=== PATIENT | male | born 1955 | race Caucasian/White ===

== ENCOUNTER 2017-01-21 11:04 | Inpatient (IN) | payer OTHER ==
[~2017-01-21] VITALS: Ht 167.6 cm; Wt 138.8 kg
--- NOTE | ~2017-01-21 | HC ---
[facility] [place] [address] CONSULTATION Name: ESTELA ENRIQUE Room #: 458-P ADM IN M.R.#: [id number] Admission: 01/21/17 Attend Phys: Chalino Nguyen MD Discharge: Date of : 57 Report #: [id number] THIS REPORT FOR: //name// CC: Chalino Mistryjannie [facility] DATE OF SERVICE: 01/24/2017 HISTORY OF PRESENT ILLNESS: The patient is a 61-year-old white male originally admitted to [facility] was then transferred to [facility] with an acute CVA. He was noted to have incoordination with weakness of the left upper and left lower extremity, slurred speech, facial droop. CT of the head was negative, but MRI confirmed a right basal ganglia infarct. Neurology is involved. He has elevated lipids, exogenous obesity. He is being seen now in rehabilitation medicine consultation. PAST MEDICAL HISTORY: Otherwise includes history of chewing tobacco. HABITS: No history of alcohol or drug usage. ALLERGIES: No known drug allergies. MEDICATIONS: Please see the full medication listing. Premorbid medications were just nonsteroidals p.r.n. PAST SURGICAL HISTORY: None. FAMILY HISTORY: None significant reported. SOCIAL HISTORY: Lives in an apartment with his brother, 1 step, his brother is apparently disabled, secondary to anxiety. REVIEW OF SYSTEMS: Did not offer any current complaints of chest pain, shortness of breath or abdominal discomfort. He complains of the weakness of the left upper and left lower extremity and does not particularly like thickened liquid diet. No focal pain complaints. PHYSICAL EXAMINATION: GENERAL: A 61-year-old obese white male in no obvious distress. VITAL SIGNS: Height 5 feet 6 inches, weight 306 pounds. He is alert, pleasant. HEENT: Revealed a definite left facial droop. He has obvious slurred speech. EOMs are full. No obvious visual field neglect to confrontation. He is right handed and appears to have functional range of motion and strength of the right upper and right lower extremity without focal weakness. DTRs are 1-2. In his left upper extremity he was only able to raise that left arm slightly. Otherwise, no volitional movement was noted of the shoulder, elbow including [facility] [address] [place] [address] CONSULTATION Name: ESTELA ENRIQUE Room #: 458-P [facility] IN M.R.#: [id number] Admission: 01/21/17 Attend Phys: Chalino Nguyen MD Discharge: Date of : 57 Report #: [id number] flexion, extension and no movement of the wrist, thumb or hand. Tone appeared decreased. Left lower extremity, he had better strength probably at least 3+ to 4-/5. No clonus. DTRs were 1 to trace. Sensory examination appeared reasonably intact to simultaneous stimulation both upper and lower extremities as well as left face. Functionally, he has been mod assist with sit to stand. Gait was 5 feet x 2 mod assist with a front-wheeled walker. Lower extremity dressing is max assist, upper extremity dressing is mod assist. He was noted to have some dysphagia, mechanical soft nectar-thickened liquids. He does have dysarthria. There is noted some cognitive by Speech Therapy as well. ASSESSMENT: A 61-year-old right-handed white male with the following problem list: 1. Right basal ganglia infarct. 2. Left upper extremity dense paresis with left lower extremity paresis. 3. Left facial droop with dysarthria and aphasia. 4. Functional mobility, activities of daily living and cognitive communication, swallowing deficits. 5. Obesity. 6. Elevated lipids. 7. Initial elevated blood pressure. 8. Chews tobacco. PLAN: The patient is an excellent acute in-hospital inpatient rehabilitation candidate. From a preadmission screening perspective: 1. Prior level of function is well delineated above. 2. Expected level of improvement would be for the patient to become modified independent with transfers, mobility, ADLs, communication, cognition and swallowing, so that he can return back to the home setting where he lives with his brother. Would anticipate length of stay of probably at least 7-10 days, but will need to see how he does with his therapies. 3. Evaluation of the patient's risk for clinical complications. He has the above noted comorbidities. 4. Condition that caused the need for rehabilitation is the acute stroke. 5. Treatments needed would include PT, OT and speech 1 hour per day each five days a week throughout the duration of the acute inpatient rehabilitation stay. 6. Anticipated discharge destination would be back to the home setting with his brother in their apartment. 7. Would anticipate likely some home healthcare if not outpatient therapies once he is ready for discharge from the acute in-hospital inpatient rehabilitation stay back to the home setting. By: [id number] Fercho Barnhart MD /
--- NOTE | ~2017-01-21 | H ---
[facility] [place] [address] HISTORY AND PHYSICAL Name: ESTELA ENRIQUE Room #: 458-P ADM IN M.R.#: [id number] Admission: 01/21/17 Attend Phys: Chalino Nguyen MD Discharge: Date of : 57 Report #: [id number] THIS REPORT FOR: //name// CC: Chalino Mistryjannie [facility] DATE OF SERVICE: 01/21/2017 REASON FOR ADMISSION: Suspected CVA. HISTORY OF PRESENT ILLNESS: The patient is a very pleasant 61-year-old gentleman, referred as a direct admit from [facility] today with concerns for an acute CVA. The patient reportedly was normal last night when he went to bed at around 8:30 p.m. Subsequently around midnight, he reported that he started experiencing weakness or incoordination in his left lower extremity. This subsequently progressed and included incoordination in his left upper extremity as well as speech slurring and facial droop and hence he presented to [facility]. These physical exam findings were confirmed. A CT head was performed, which did not reveal any acute hemorrhage and he has subsequently been transferred to [facility] for further evaluation and treatment. His initial NIH score was 6 at [facility] and is 4 here at [facility]. He failed a bedside swallow study at [facility]. The patient reports that he has had mild improvement of his left weakness. He denies any other numbness, weakness, skin rashes, abdominal pain, chest pain, headaches, diarrhea or other problems at this time. PAST MEDICAL HISTORY: None known to the patient. Noted to have elevated blood pressure at [facility] of 177/85. PAST SURGICAL HISTORY: None. FAMILY HISTORY: None significant reported. SOCIAL HISTORY: He chews tobacco. He also smokes cigars. He denies any alcohol or drug use. 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 MEDICATIONS AT HOME: NSAIDs p.r.n. ALLERGIES: No known drug allergies. REVIEW OF SYSTEMS: Twelve-point review of systems performed, negative except as mentioned in history of present illness. PHYSICAL EXAMINATION: Seen today: VITAL SIGNS: The patient's vitals at [facility] noted pulse ox of 94, blood pressure 177/85, afebrile, pulse 65, respiration rate of 18. [facility] [address] [place] [address] HISTORY AND PHYSICAL Name: ESTELA ENRIQUE Room #: 458-P [facility] IN M.R.#: [id number] Admission: 01/21/17 Attend Phys: Chalino Nguyen MD Discharge: Date of : 57 Report #: [id number] HEENT: Notable for left facial droop and slurred speech. Pupils are equal and reactive. CARDIOVASCULAR: S1 and S2 present, regular. ____ present bilaterally. ABDOMEN: Obese, soft, nontender, nondistended. EXTREMITIES: Without edema. NEUROLOGIC: Weakness in left upper extremity with 2/5 strength as well as pronator drift noted on left. Left lower extremity 4/5 strength. Otherwise left facial droop noted. No other obvious focal abnormalities noted. SKIN: Dry. LABS AND INVESTIGATIONS: Done at [facility] includes an EKG, which shows normal sinus rhythm without concerning ST or T changes. CT head shows no acute abnormalities. Chemistry within normal range. Minimally elevated glucose of 123. CBC with mild leukocytosis of 11, otherwise unremarkable. ASSESSMENT AND PLAN: This is a 61-year-old gentleman presenting with signs concerning for left weakness and right-sided cerebrovascular accident. 1. Suspected right-sided cerebrovascular accident. I will complete stroke workup here with an MRI/MRA as well as carotid Dopplers and an echocardiogram. We will involve Neurology in the patient's care as well. Permissive hypertension will be employed for the present until he is 48 hours post symptoms. He is unfortunately well outside the window for tPA as his symptoms started at midnight yesterday. He will start rectal aspirin for the patient until he can safely tolerate p.o. and will obtain speech evaluation as well. 2. Hypertension, permissive for now. 3. Mild hyperglycemia. Follow A1c. 4. Deep vein thrombosis prophylaxis with Lovenox. Further changes to care based on his clinical course. <ELECTRONICALLY SIGNED> By: Chalino Nguyen MD 01/21/17 [id number] Chalino Nguyen MD /nt
--- NOTE | ~2017-01-21 | 2DMMODE ---
[facility] [place] [place] [address] [place] [address] 2 D/M-MODE ECHOCARDIOGRAM Name: ESTELA ENRIQUE ALEJANDRO Room #: 458-P [facility] IN M.R.#: [id number] Admission: 01/21/17 Attend Phys: Chalino Nguyen, Discharge: Date of : 57 Date of Service: 01/21/17 1524 Report #: [id number] THIS REPORT FOR: //name// APPROVED REPORT Study performed: 01/21/2017 13:31:48 EXAM: Comprehensive 2D, Doppler, and color-flow Echocardiogram Patient Location: Bedside Room #: 458 Status: routine BSA: 2.40 HR: 59 bpm BP: 161/81 mmHg Other Information Study Quality: Adequate Indications CVA/TIA 2D Dimensions RVDd: 34.56 mm LVEF(%): 70.52 (>50%) IVSd: 9.96 (7-11mm) LVOT Diam: 22.37 (18-24mm) LVDd: 46.27 mm PWd: 10.17 (7-11mm) Ascending Ao: 30.95 (22-36mm) LVDs: 27.82 (25-40mm) Aortic Root: 30.56 mm Barnard's LVEF: 70.52 % Volumes Left Atrial Volume (Systole) Single Plane 4CH: 49.36 mL Single Plane 2CH: 59.97 mL LA ESV Index: 25.00 mL/m2 Aortic Valve AoV Peak Krzysztof.: 1.38 m/s AO Peak Gr.: 7.58 mmHg LVOT Max P.83 mmHg LVOT Max V: 1.10 m/s JESSI Vmax: 3.13 cm2 Mitral Valve E/A Ratio: 1.1 MV Decel. Time: 190.23 ms MV E Max Krzysztof.: 0.84 m/s [facility] [place] [address] 2 D/M-MODE ECHOCARDIOGRAM Name: KLAUSESTELA JAMES Room #: 458-P [facility] IN M.R.#: [id number] Admission: 01/21/17 Attend Phys: Chalino Nguyen, Discharge: Date of : 57 Date of Service: 01/21/17 1524 Report #: [id number] MV A Krzysztof.: 0.75 m/s MV PHT: 55.17 ms IVRT: 124.57 ms Pulmonary Valve PV Peak Krzysztof.: 1.09 m/s PV Peak Gr.: 4.71 mmHg Pulmonary Vein P Vein S: 0.36 m/s P Vein A: 0.29 m/s P Vein D: 0.32 m/s P Vein A Dur.: 120.0 msec P Vein S/D Ratio: 1.13 Tricuspid Valve TR Peak Krzysztof.: 1.40 m/s RAP Estimate: 5.00 mmHg TR Peak Gr.: 7.80 mmHg Left Ventricle The left ventricle is normal size. There is normal left ventricular wall thickness. The left ventricular systolic function is normal. The left ventricular ejection fraction is within the normal range. LVEF is 60-65%. Grade II - pseudonormal filling dynamics. Right Ventricle The right ventricle is normal size. The right ventricular systolic function is normal. Atria The left atrium size is normal. Injection of bubbles documented no interatrial shunt. The right atrium size is normal. Aortic Valve Aortic valve is calcified. No aortic regurgitation is present. There is no aortic valvular stenosis. Mitral Valve There is mitral annular calcification. There is no mitral valve regurgitation noted. No evidence of mitral valve stenosis. Tricuspid Valve The tricuspid valve is normal in structure. There is no tricuspid valve regurgitation noted. Pulmonic Valve The pulmonary valve is normal in structure. There is no pulmonic valvular regurgitation. [address] [address] 2 D/M-MODE ECHOCARDIOGRAM Name: ESTELA ENRIQUE Room #: 458-P [facility] IN ..#: [id number] Admission: 01/21/17 Attend Phys: Chalino Nguyen, Discharge: Date of : 57 Date of Service: 01/21/17 1524 Report #: [id number] Great Vessels The aortic root is normal in size. IVC is not well visualized. Pericardium There is no pericardial effusion. <Conclusion> The left ventricle is normal size. LVEF is 60-65%. Aortic valve is calcified. No aortic regurgitation is present. There is no aortic valvular stenosis. There is mitral annular calcification. There is no mitral valve regurgitation noted. The tricuspid valve is normal in structure. <ELECTRONICALLY SIGNED> By: Vance Umana MD 01/21/17 1524 1524 1524 Vance Umana MD /INF
[2017-01-21 11:45] VITALS: BP 161/81
[2017-01-21 15:20] VITALS: BP 171/87
[2017-01-21 17:51] LABS: ALBUMIN 3.6 g/dL (3.4-5.0); CALCIUM 9.3 mg/dL (8.5-10.1); CREATININE 0.9 mg/dL (0.7-1.3); POTASSIUM 3.5 mmol/L (3.5-5.1); TOTAL BILIRUBIN 0.4 mg/dL (<0.1-1.0); TOTAL PROTEIN 7.6 g/dL (6.4-8.2)
[2017-01-21 20:00] VITALS: BP 133/65
[2017-01-21 20:13] LABS: TSH 1.285 uIU/mL (0.358-3.740)
[2017-01-21 20:54] LABS: FOLIC ACID 32.1 ng/mL (8.6-58.9)
[2017-01-22 00:32] VITALS: BP 134/58
[2017-01-22 04:46] VITALS: BP 149/75
[2017-01-22 05:08] LABS: GLYCOHEMOGLOBIN (HGB A1C) 5.2 % (4.8-5.6)
[2017-01-22 07:12] LABS: CHOLESTEROL 224 mg/dL (<200); HDL CHOLESTEROL 27 mg/dL (>40); LDL CHOLESTEROL 151 mg/dL (<100); TC:HDL 8.3 Ratio (Not establshd); TRIGLYCERIDE 233 mg/dL (<150); VLDL 47 mg/dL (<40)
[2017-01-22 08:13] VITALS: BP 161/93
[2017-01-22 12:59] VITALS: BP 153/85
[2017-01-22 16:42] VITALS: BP 150/75
[2017-01-22 19:54] VITALS: BP 127/79
[2017-01-23 03:33] VITALS: BP 151/84
[2017-01-23 08:03] VITALS: BP 134/78
[2017-01-23 12:00] VITALS: BP 122/59
[2017-01-23 16:01] VITALS: BP 139/54
[2017-01-23 20:08] VITALS: BP 150/57
[2017-01-24 03:28] VITALS: BP 134/68
[2017-01-24 07:48] VITALS: BP 153/74
[2017-01-24 13:30] VITALS: BP 146/75
[2017-01-24 15:15] VITALS: BP 148/97
[2017-01-24 19:38] VITALS: BP 149/73
[2017-01-25 04:17] VITALS: BP 156/79
[2017-01-25 08:43] VITALS: BP 126/67
[2017-01-25] MEDS ORDERED: ENOXAPARIN40 MG/0.1 SUBQ (11:29)
[2017-01-25] MEDS ORDERED: ASPIR-TRIN325 MG PO (11:29)
[2017-01-25] MEDS ORDERED: LIPITOR 20 MG T20 M1 PO (11:29)
[2017-01-25] MEDS ORDERED: VITAMIN B-12500 MCG PO (11:31)
[2017-01-25 12:07] LABS: ALPHA TOCOPHEROL 8.4 mg/L (5.3-17.5)
== END 2017-01-25 11:51 | DRG 65 ==
LOC: 4W 11:04
PROVIDERS: Hospitalist; Psychiatry & Neurology Neurology
DX: I63.9 Cerebral infarction, unspecified (principal); G81.94 Hemiplegia, unspecified affecting left nondominant side; Z68.42 Body mass index [BMI] 45.0-49.9, adult; E66.01 Morbid (severe) obesity due to excess calories; R29.810 Facial weakness; F17.220 Nicotine dependence, chewing tobacco, uncomplicated; R73.9 Hyperglycemia, unspecified; I10 Essential (primary) hypertension; E78.5 Hyperlipidemia, unspecified; E53.8 Deficiency of other specified B group vitamins
CPT/HCPCS: 10045

== ENCOUNTER 2017-01-25 10:44 | Inpatient (IN) | payer OTHER ==
[~2017-01-25] VITALS: Ht 167.6 cm; Wt 134.1 kg
--- NOTE | ~2017-01-25 | PLAN ---
[facility] [place] [address] REHAB UNIT PLAN OF CARE Name: ESTELA ENRIQUE Room #: 501-A [facility] IN M.R.#: [id number] Admission: 01/25/17 Attend Phys: Fercho Barnhart MD Discharge: Date of : 57 Report #: [id number] THIS REPORT FOR: //name// CC: Aiden Barnhart DATE OF SERVICE: 01/27/2017 PROGRESS NOTE/OVERALL PLAN OF CARE The patient is seen back today in followup. He was in no distress. PHYSICAL EXAMINATION: VITAL SIGNS: Temperature is 98, pulse 66, respirations 20, blood pressure 134/76. GENERAL: He is alert, pleasant. MUSCULOSKELETAL: He appeared to have trace left upper extremity movement, appeared to be the wrist extensors. No proximal movement or distal movement and it was only barely trace. Left lower extremity strength appears to be better at probably 4-4-/5. He is mod assist with sit to stand transfers. He did ambulate 55 feet with the front wheeled walker, max assist. In occupational therapy, upper body dressing is mod assist, lower body is dependent. In speech therapy, comprehension is mild. He is on a mechanical soft diet with nectar thickened liquids. ASSESSMENT: 1. Right basal ganglion infarct with some extension. 2. 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 He might have a little bit of trace movement of the left upper extremity. 3. Left facial droop with dysarthria and aphasia. 4. Dysphagia, on nectar thickened liquid diet. 5. Obesity. 6. Elevated lipids. 7. Elevated blood pressure upon admission. PLAN: The overall plan of care is based on the preadmission screen, post-admission physician evaluation and information garnered from therapy assessments. 1. Estimated length of stay is probably at least 2-3 weeks and potentially longer as he is at a lower level. 2. Medical prognosis is reasonably good. 3. Anticipated interventions includes the interdisciplinary acute inpatient rehabilitation program with PT, OT and speech, rehabilitation nursing assisting regarding medication management, skin care prophylaxis, bowel and bladder issues and nursing education. Case management is involved as well as the consulting physicians. [facility] [address] [place] [address] REHAB UNIT PLAN OF CARE Name: ESTELA ENRIQUE ALEJANDRO Room #: 501-A [facility] IN ..#: [id number] Admission: 01/25/17 Attend Phys: Fercho Barnhart MD Discharge: Date of : 57 Report #: [id number] 4. Anticipated functional outcomes would be for the patient to become modified independent with transfers, mobility and ADLs and improvement with swallowing and communication so that he can return back to his prior living situation. Hopefully, he will be able to be modified independent with basic mobility at least at the walker level if possible. 5. Discharge destination will be back to the home setting with his brother. They live in an apartment. 6. Expected therapy by discipline includes PT, OT and speech 1 hour per day each 5 days a week throughout the duration of the acute inpatient rehabilitation stay. <ELECTRONICALLY SIGNED> By: Fercho Barnhart MD 02/16/17 1227 0907 2325 Fercho Barnhart MD /[facility]
--- NOTE | ~2017-01-25 | H ---
[facility] [place] [address] HISTORY AND PHYSICAL Name: ESTELA ENRIQUE Room #: 501-A [facility] IN M.R.#: [id number] Admission: 01/25/17 Attend Phys: Fercho Barnhart MD Discharge: Date of : 57 Report #: [id number] THIS REPORT FOR: //name// CC: Aiden Barnhart DATE OF SERVICE: 01/26/2017 HISTORY OF PRESENT ILLNESS: The patient is a 61-year-old white male originally admitted to [facility] and then transferred to [facility] with an acute CVA. He was noted to have incoordination with weakness of the left upper and left lower extremity, slurred speech, facial droop. CT of the head was negative, but MRI confirmed right basal ganglia infarct. Neurology was involved. He was thought to have some worsening of his condition with decreased movement of that left upper extremity. Followup MRI did show some enlarging of that acute right basal ganglia infarct. Neurology has been involved. The patient does have dysphagia and is on nectar thickened liquid diet. He has significant functional mobility and ADL deficits as well as communication and swallowing issues. He has now been admitted for acute in-hospital inpatient rehabilitation. PAST MEDICAL HISTORY: Include exogenous obesity, elevated lipids. HABITS: No history of alcohol or drug usage. He does have a history of chewing tobacco. ALLERGIES: No known drug allergies. MEDICATIONS: Please see the full medication listing. This list includes vitamins, herbals, supplements etc. PAST SURGICAL HISTORY: None. FAMILY HISTORY: None significantly recorded. SOCIAL HISTORY: Lives in an apartment with his brother, 1 step; his brother is noted is disabled secondary to anxiety per his history. 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 REVIEW OF SYSTEMS: No current complaints of chest pain, shortness of breath, abdominal discomfort. He has weakness of the left upper and left lower extremity. He does not like the nectar thickened liquid diet, but appears to be tolerating it little bit better for now. No complaints of focal extremity pain complaints. PHYSICAL EXAMINATION: [address] [address] HISTORY AND PHYSICAL Name: ESTELA ENRIQUE ALEJANDRO Room #: 501-A [facility] IN .R.#: [id number] Admission: 01/25/17 Attend Phys: Fercho Barnhart MD Discharge: Date of : 57 Report #: [id number] GENERAL: This is a 61-year-old obese white male, in no obvious distress. VITAL SIGNS: Height is 5 feet 6 inches, weight 306 pounds. NEUROLOGIC: He is alert, pleasant. He has obvious left facial droop. EOMs are full. He does have some slurring of his speech. There is no obvious visual field neglect to confrontation. He is right handed. HEENT: Appeared to be otherwise benign. CHEST: Clear to auscultation. CARDIOVASCULAR: Regular rate and rhythm. ABDOMEN: Bowel sounds positive, nontender, obese. GENITOURINARY AND RECTAL: Deferred. EXTREMITIES: He has functional range of motion and strength of the right upper and right lower extremity without focal weakness. Left upper extremity; he was unable to lift up that arm or move it at all. He does have some decreased, but present left shoulder shrug. No biceps; however, no volitional movement of the left upper extremity itself. Tone appeared decreased. Left lower extremity was better with strength 3+ to 4-/5. No clonus. Sensory examination is reasonably intact to simultaneous stimulation both upper and lower extremities and left face. He has done some limited walking at this point with transfers, mod assist and he did ambulate a short distance with max assist with a front-wheeled walker and orthostasis. He is needing max assist for lower extremity dressing. Again, he is on a nectar thickened liquids with some dysarthria. ASSESSMENT: This is a 61-year-old white male with the following problem list: 1. Right basal ganglia infarct with some slight extension. 2. 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 3. Left facial droop with dysarthria and aphasia. 4. Dysphagia, on nectar thickened liquid diet. 5. Obesity. 6. Elevated lipids. 7. Initial elevated blood pressure upon admission. 8. He chews tobacco. PLAN: The patient is admitted for acute in-hospital inpatient rehabilitation. From a post admission physician evaluation perspective, there are no relevant changes since the preadmission screening. Please see the above review of prior and current medical and functional conditions and comorbidities. Please see the patient's previous and current functional status. As far as risk of complications, he does have multiple medical comorbidities as noted above. Initial plan of care involves the interdisciplinary acute inpatient rehabilitation program with the goal of maximizing the patient's functional independence, so that he can hopefully return back to his prior living situation. Goals would be for him to ideally be modified independent with transfers, mobility and ADLs at least at the walker level as well as improvement of his swallowing and communication. Prognosis is reasonably good. We would estimate [facility] [address] [place] [address] HISTORY AND PHYSICAL Name: ESTELA ENRIQUE Room #: 501-A ADM IN M.R.#: [id number] Admission: 01/25/17 Attend Phys: Fercho Barnhart MD Discharge: Date of : 57 Report #: [id number] length of stay at least at 10 days to 2 weeks and likely longer. Potential barriers would include his medical comorbidities and decreased functional status. The patient meets diagnostic criteria for an acute in-hospital inpatient rehabilitation stay. He meets medical necessity criteria. He does have the tolerance for an acute inpatient rehabilitation program and has appropriate discharge goals back to the home setting. <ELECTRONICALLY SIGNED> By: Fercho Barnhart MD 02/16/17 1227 0801 0904 Fercho Barnhart MD /[facility]
--- NOTE | ~2017-01-25 | HC ---
[facility] [place] [address] CONSULTATION Name: ESTELA ENRIQUE Room #: 511-P [facility] IN M.R.#: [id number] Admission: 01/25/17 Attend Phys: Fercho Barnhart MD Discharge: Date of : 57 Report #: [id number] THIS REPORT FOR: //name// CC: Aiden Carneyjosiah Fercho Barnhart DATE OF SERVICE: 01/29/2017 NEUROBEHAVIORAL STATUS EXAM ATTENDING PHYSICIAN: Fercho Barnhart MD. FISH AGENT: Vladimir Allen, PhD. CLINICAL PRESENTATION: The patient is a 61-year-old male admitted to the [facility] for treatment of a cerebrovascular accident. He initially presented with incoordination and weakness of the left upper and lower extremity, slurred speech and facial droop. An MRI indicated a right basal ganglia infarction. His diagnosis also includes dysphagia, obesity, elevated lipids, elevated blood pressure on admission and tobacco abuse. A complete description of his medical condition and history along with medications can be found in his medical record. Neuropsychological consultation was requested to provide assistance in the assessment of cognitive and emotional status and to provide recommendations and services. 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 He is a high school graduate. He has one brother. The patient has never and has no children. TECHNIQUES UTILIZED: Clinical interview, review of medical records, staff consultation and behavioral observation, mini mental status exam 2 standard version, clock drawing and category fluency. EXAMINATION FINDINGS: The patient was alert and cooperative with the assessment. He accurately described the reason for his admission. There is no evidence of aphasia. His thoughts are logical and goal oriented. There is no evidence of thought disorder. He does not report having had a fall surrounding a stroke. He has a good recall of the events surrounding the stroke. He reports having noticed his symptoms and having his brother call 911 in order to obtain transportation to the hospital for treatment. He describes his symptoms to include mild emotional lability. His performance on the mini mental status exam 2 brief version was within normal limits with a raw score 14/16. The patient was 3/3 for initial registration, 5/5 for orientation to time, and 5/[address]. He was 1/3 for immediate recall of 3 items after a brief time delay and distraction. [address] [address] CONSULTATION Name: ESTELA ENRIQUE Room #: 511-P [facility] IN .R.#: [id number] Admission: 01/25/17 Attend Phys: Fercho Barnhart MD Discharge: Date of : 57 Report #: [id number] His performance deteriorated on the MMSE 2 standard version to a raw score 23/30, which is a T score of 32 and percentile rank of 4. The patient was 0/5 for serial 7's, 2/2 for naming, 1/1 for repetition. He was 3/3 for auditory comprehension, 1/1 for reading and 1/1 for writing. He was able to accurately copy a simple geometric design. Clock drawing was within normal limits. Category fluency was in the average range with a raw score of 20 and T score of 55. The patient is presenting with mild deficits in neurocognitive functioning that includes attention and concentration and memory. Emotional lability is also reported. 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 RECOMMENDATIONS: The patient will benefit from continued neurocognitive rehabilitation with a focus on attention/concentration, and immediate recall. Strategies to assist in the management of emotional lability are indicated. The use of relaxation techniques and redirection of attention will assist with emotional lability. Reassurance in regard to his recovery will also assist his adjustment. A followup neuropsych assessment at approximately 3 months will be of benefit to clarify the severity of cognitive deficits. The patient is likely to require disability from his job as spot welder line. Thank you very much for allowing me to provide the consultation on this patient. <ELECTRONICALLY SIGNED> By: Vladimir Allen, PhD 01/30/17 1417 1345 0514 Vladimir Allen, PhD /nt
[2017-01-25] MEDS ORDERED: ASPIR-TRIN325 MG PO (11:29)
[2017-01-25] MEDS ORDERED: LIPITOR 20 MG T20 M1 PO (11:29)
[2017-01-25] MEDS ORDERED: ENOXAPARIN40 MG/0.1 SUBQ (11:29)
[2017-01-25] MEDS ORDERED: VITAMIN B-12500 MCG PO (11:31)
[2017-01-25 12:00] VITALS: BP 128/66
[2017-01-26 07:25] VITALS: BP 133/64
[2017-01-26 20:24] VITALS: BP 134/76
[2017-01-27 05:49] LABS: HEMATOCRIT 44.7 % (42.0-52.0); MCH 30.9 pg (26.0-34.0); MCHC 33.6 g/dL (28.0-37.0); MCV 91.9 fL (80.0-100.0); RBC 4.86 mil/uL (4.50-6.00); RDW 12.7 % (10.5-14.5); WBC 12.3 thou/uL (4.0-11.0)
[2017-01-27 05:57] LABS: CALCIUM 9.1 mg/dL (8.5-10.1); CREATININE 0.9 mg/dL (0.7-1.3); POTASSIUM 4.2 mmol/L (3.5-5.1)
[2017-01-27 17:00] VITALS: BP 134/71
[2017-01-27 21:06] VITALS: BP 126/48
[2017-01-28 09:00] VITALS: BP 123/57
[2017-01-28 19:49] VITALS: BP 120/86
[2017-01-29 19:40] VITALS: BP 128/66
[2017-01-30 19:40] VITALS: BP 145/71
[2017-01-31 06:31] VITALS: BP 114/70
[2017-01-31 20:00] VITALS: BP 155/60
[2017-02-01 08:30] VITALS: BP 138/60
[2017-02-01 19:30] VITALS: BP 132/79
[2017-02-01 21:17] VITALS: BP 125/70
[2017-02-02 08:30] VITALS: BP 114/63
[2017-02-03 08:00] VITALS: BP 112/58
[2017-02-03 22:14] VITALS: BP 118/68
[2017-02-04 06:22] LABS: ABSOLUTE NEUTROPHILS 6.7 thou/uL (1.4-8.2); BASOPHILS 1.2 % (0.0-2.0); EOSINOPHILS 6.2 % (0.0-3.0); HEMATOCRIT 44.2 % (42.0-52.0); HEMOGLOBIN 14.9 gm/dL (14.0-18.0); LYMPHOCYTES 21.9 % (24.0-44.0); MCHC 33.7 g/dL (28.0-37.0); MCV 91.8 fL (80.0-100.0); MONOCYTES 7.7 % (1.0-8.0); PLATELET COUNT 237 thou/uL (150-400); RBC 4.81 mil/uL (4.50-6.00); RDW 12.7 % (10.5-14.5); WBC 10.6 thou/uL (4.0-11.0)
[2017-02-04 06:23] LABS: MANUAL DIFF NO
[2017-02-04 06:35] LABS: CALCIUM 9.3 mg/dL (8.5-10.1); CREATININE 0.8 mg/dL (0.7-1.3); MAGNESIUM 1.9 mg/dL (1.8-2.4); POTASSIUM 3.9 mmol/L (3.5-5.1)
[2017-02-04 08:00] VITALS: BP 129/62
[2017-02-04 21:20] VITALS: BP 139/66
[2017-02-05 08:34] VITALS: BP 163/69
[2017-02-05 20:37] VITALS: BP 117/73
[2017-02-06 08:00] VITALS: BP 140/58
[2017-02-06 10:59] VITALS: BP 140/58
[2017-02-06 19:20] VITALS: BP 134/69
[2017-02-07 10:17] VITALS: BP 139/60
[2017-02-07 15:52] LABS: ABSOLUTE NEUTROPHILS 7.8 thou/uL (1.4-8.2); EOSINOPHILS 5.1 % (0.0-3.0); HEMATOCRIT 45.8 % (42.0-52.0); HEMOGLOBIN 15.1 gm/dL (14.0-18.0); LYMPHOCYTES 22.2 % (24.0-44.0); MCH 30.2 pg (26.0-34.0); MCV 91.5 fL (80.0-100.0); MONOCYTES 6.4 % (1.0-8.0); PLATELET COUNT 264 thou/uL (150-400); POLYS 65.3 % (36.0-66.0); RDW 12.6 % (10.5-14.5)
[2017-02-07 15:58] LABS: MANUAL DIFF NO
[2017-02-07 16:02] LABS: INR 1.1; PROTIME 10.9 Seconds (9.3-11.4)
[2017-02-07 19:52] VITALS: BP 128/64
[2017-02-08 09:00] VITALS: BP 139/48
[2017-02-09 08:00] VITALS: BP 142/68
[2017-02-09 20:06] VITALS: BP 135/57
[2017-02-10 08:29] VITALS: BP 125/76
[2017-02-10 08:31] VITALS: BP 125/76
[2017-02-10 20:00] VITALS: BP 141/71
[2017-02-11 07:58] VITALS: BP 132/81
[2017-02-11 19:34] VITALS: BP 133/67
[2017-02-12 08:00] VITALS: BP 127/70
[2017-02-12 19:58] VITALS: BP 111/64
[2017-02-13 08:00] VITALS: BP 140/57
[2017-02-13 21:00] VITALS: BP 137/56
[2017-02-14 03:59] LABS: BASOPHILS 0.6 % (0.0-2.0); HEMATOCRIT 43.6 % (42.0-52.0); HEMOGLOBIN 14.4 gm/dL (14.0-18.0); LYMPHOCYTES 25.3 % (24.0-44.0); MCH 30.4 pg (26.0-34.0); MCHC 33.2 g/dL (28.0-37.0); MCV 91.8 fL (80.0-100.0); MONOCYTES 7.4 % (1.0-8.0); PLATELET COUNT 249 thou/uL (150-400); POLYS 60.7 % (36.0-66.0); RBC 4.75 mil/uL (4.50-6.00); RDW 12.4 % (10.5-14.5); WBC 11.5 thou/uL (4.0-11.0)
[2017-02-14 04:00] LABS: MANUAL DIFF NO
[2017-02-14 04:06] LABS: CREATININE 0.8 mg/dL (0.7-1.3); POTASSIUM 3.7 mmol/L (3.5-5.1)
[2017-02-14 09:42] VITALS: BP 142/74
[2017-02-14 19:40] VITALS: BP 137/81
[2017-02-15 07:45] VITALS: BP 146/82
[2017-02-15 19:47] VITALS: BP 114/59
[2017-02-16 08:30] VITALS: BP 137/60
[2017-02-16 19:44] VITALS: BP 139/84
[2017-02-17 08:00] VITALS: BP 128/75
[2017-02-17 20:29] VITALS: BP 116/67
[2017-02-18 08:00] VITALS: BP 153/86
[2017-02-18 08:52] VITALS: BP 153/86
[2017-02-18 09:08] VITALS: BP 153/86
[2017-02-18 12:25] VITALS: BP 153/86
== END 2017-02-18 12:15 | disposition home health service (06) | DRG 65 ==
LOC: ENTRNSPT 02-18 11:52 → EDTRNSPTSTS 02-18 11:55
PROVIDERS: Internal Medicine Endocrinology, Diabetes & Metabolism; Nurse Practitioner; Nurse Practitioner Family
DX: I63.9 Cerebral infarction, unspecified (principal); G81.94 Hemiplegia, unspecified affecting left nondominant side; Z68.42 Body mass index [BMI] 45.0-49.9, adult; R47.01 Aphasia; R47.1 Dysarthria and anarthria; R29.810 Facial weakness; R13.10 Dysphagia, unspecified; G31.84 Mild cognitive impairment of uncertain or unknown etiology; E78.5 Hyperlipidemia, unspecified; E66.01 Morbid (severe) obesity due to excess calories; I10 Essential (primary) hypertension; E53.8 Deficiency of other specified B group vitamins; Z91.010 Allergy to peanuts
CPT/HCPCS: 10112

== ENCOUNTER 2019-06-07 15:02 | Emergency (ER) | payer OTHER ==
[~2019-06-07] VITALS: Ht 167.6 cm; Wt 149.7 kg
[~2019-06-07 15:02] MED LIST: ASPIR-TRIN325 MG PO; ENOXAPARIN40 MG/0.1 SUBQ; LIPITOR 20 MG T20 M1 PO; VITAMIN B-12500 MCG PO
[2019-06-07] MEDS ORDERED: LISINOPRIL2.5 MG PO ×2 (15:43)
[2019-06-07] MEDS ORDERED: DULOXETINE HCL20 MG PO (15:44)
[2019-06-07] MEDS ORDERED: FUROSEMIDE 40 M40 MG PO (15:45)
[2019-06-07 16:33] VITALS: BP 120/54
[2019-06-07] MEDS ORDERED: LISINOPRIL-HCT1 EAC1 PO (22:48)
== END 2019-06-07 16:53 | disposition home or self-care (01) ==
LOC: ER 15:02
DX: J06.9 Acute upper respiratory infection, unspecified (principal); E78.00 Pure hypercholesterolemia, unspecified; Z86.73 Personal history of transient ischemic attack (TIA), and cerebral infarction without residual deficits; Z91.018 Allergy to other foods

== ENCOUNTER 2019-06-07 21:28 | Emergency (ER) | payer OTHER ==
[~2019-06-07] VITALS: Ht 182.9 cm; Wt 160.6 kg
[~2019-06-07 21:28] MED LIST changes: +DULOXETINE HCL20 MG PO; +FUROSEMIDE 40 M40 MG PO; +LISINOPRIL2.5 MG PO
[2019-06-07 21:55] LABS: WBC 10.2 thou/uL (4.0-11.0)
[2019-06-07 21:57] LABS: ABSOLUTE NEUTROPHILS 8.7 thou/uL (1.4-8.2); BASOPHILS 0.7 % (0.0-2.0); EOSINOPHILS 3.9 % (0.0-3.0); HEMATOCRIT 38.3 % (42.0-52.0); HEMOGLOBIN 12.6 gm/dL (14.0-18.0); LYMPHOCYTES 4.2 % (24.0-44.0); MCH 29.4 pg (26.0-34.0); MCV 89.1 fL (80.0-100.0); MONOCYTES 6.3 % (1.0-8.0); PLATELET COUNT 285 thou/uL (150-400); POLYS 84.9 % (36.0-66.0); RDW 13.6 % (10.5-14.5)
[2019-06-07 21:58] LABS: CALCIUM 9.3 mg/dL (8.5-10.1); CREATININE 1.3 mg/dL (0.7-1.3); POTASSIUM 4.1 mmol/L (3.5-5.1)
[2019-06-07 22:04] LABS: ALBUMIN 3.4 g/dL (3.4-5.0); TOTAL BILIRUBIN 0.5 mg/dL (<0.1-1.0); TOTAL PROTEIN 8.1 g/dL (6.4-8.2)
[2019-06-07] MEDS ORDERED: LISINOPRIL-HCT1 EAC1 PO (22:48)
[2019-06-07 23:47] VITALS: BP 136/67
--- NOTE | 2019-06-08 14:25 | EKG ---
[address] [place] [address] ELECTROCARDIOGRAM REPORT Name: ESTELA ENRIQUE Room #: DEP Evelyne#: [id number] Admission: 06/07/19 Attend Phys: Discharge: 06/07/19 Date of : 57 Report #: [id number] THIS REPORT FOR: //name// 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 : 1955 Requested By: Ashlie Martin Order Number: [id number] MD: Perry Coelho Measurements Intervals [place] Rate: 118 P: 46 NM: 177 QRS: -55 QRSD: 97 T: 96 QT: 312 QTc: 438 Interpretive Statements Sinus tachycardia Left anterior fascicular block Borderline low voltage, extremity leads Abnormal R-wave progression, late transition Nonspecific T abnormalities, lateral leads Compared to ECG 08/22/1997 19:15:00 Electronically Signed On 06-08-2019 14:25:12 [employer] by Perry Coelho [email or web address] <ELECTRONICALLY SIGNED> By: Perry Coelho MD 06/08/19 1425 36 36 Perry Coelho MD /EPI
== END 2019-06-07 23:45 | disposition still patient (30) ==
LOC: ER 21:28
PROVIDERS: Nurse Practitioner
DX: R53.1 Weakness (principal); E78.00 Pure hypercholesterolemia, unspecified; Z86.73 Personal history of transient ischemic attack (TIA), and cerebral infarction without residual deficits; Z91.018 Allergy to other foods

== ENCOUNTER 2019-07-10 18:52 | Emergency (ER) | payer OTHER ==
[~2019-07-10] VITALS: Ht 167.6 cm; Wt 158.8 kg
[~2019-07-10 18:52] MED LIST changes: +LISINOPRIL-HCT1 EAC1 PO
[2019-07-10 18:53] VITALS: BP 111/57
[2019-07-11] MEDS ORDERED: MELOXICAM15 MG PO (01:04)
[2019-07-11] MEDS ORDERED: ULTRAM 50MG TAB50 MG PO (01:04)
== END 2019-07-11 01:33 | disposition home or self-care (01) ==
LOC: ER 18:52
DX: M25.552 Pain in left hip (principal); L29.9 Pruritus, unspecified; E78.00 Pure hypercholesterolemia, unspecified; Z86.73 Personal history of transient ischemic attack (TIA), and cerebral infarction without residual deficits; Z91.018 Allergy to other foods

== ENCOUNTER 2019-08-06 01:34 | Emergency (ER) | payer OTHER ==
[~2019-08-06] VITALS: Ht 167.6 cm; Wt 158.8 kg
[~2019-08-06 01:34] MED LIST changes: +MELOXICAM15 MG PO; +ULTRAM 50MG TAB50 MG PO
[2019-08-06] MEDS ORDERED: KEFLEX500 M1 PO (03:12)
[2019-08-06 03:36] VITALS: BP 146/76
== END 2019-08-06 03:37 | disposition home or self-care (01) ==
LOC: ER 01:34
DX: L03.115 Cellulitis of right lower limb (principal); E78.00 Pure hypercholesterolemia, unspecified; F17.210 Nicotine dependence, cigarettes, uncomplicated; Z79.899 Other long term (current) drug therapy

== ENCOUNTER 2019-11-23 11:13 | Emergency (ER) | payer OTHER ==
[~2019-11-23] VITALS: Ht 167.6 cm; Wt 158.8 kg
[~2019-11-23 11:13] MED LIST changes: +KEFLEX500 M1 PO
[2019-11-23 11:48] LABS: ABSOLUTE NEUTROPHILS 7.1 thou/uL (1.4-8.2); BASOPHILS 0.9 % (0.0-2.0); EOSINOPHILS 14.3 % (0.0-3.0); HEMATOCRIT 37.6 % (42.0-52.0); HEMOGLOBIN 12.7 gm/dL (14.0-18.0); LYMPHOCYTES 19.2 % (24.0-44.0); MCH 29.9 pg (26.0-34.0); MCHC 33.8 g/dL (28.0-37.0); MCV 88.7 fL (80.0-100.0); MONOCYTES 6.4 % (1.0-8.0); PLATELET COUNT 366 thou/uL (150-400); POLYS 59.2 % (36.0-66.0); RBC 4.24 mil/uL (4.50-6.00); RDW 14.9 % (10.5-14.5); WBC 12.1 thou/uL (4.0-11.0)
[2019-11-23 12:11] LABS: CALCIUM 9.1 mg/dL (8.5-10.1); CREATININE 1.2 mg/dL (0.7-1.3); POTASSIUM 3.7 mmol/L (3.5-5.1)
[2019-11-23] MEDS ORDERED: KEFLEX500 M1 PO (13:43)
[2019-11-23] MEDS ORDERED: PREDNISONE 20 M20 MG PO (13:43)
[2019-11-23] MEDS ORDERED: PERMETHRIN60 GM TOP (13:43)
[2019-11-23] MEDS ORDERED: IVERMECTIN3 MG PO (13:43)
[2019-11-23 13:50] VITALS: BP 126/50
== END 2019-11-23 13:50 | disposition home or self-care (01) ==
LOC: ER 11:13
PROVIDERS: Emergency Medicine
DX: R21 Rash and other nonspecific skin eruption (principal); E11.9 Type 2 diabetes mellitus without complications; E78.00 Pure hypercholesterolemia, unspecified; Z87.891 Personal history of nicotine dependence; Z79.899 Other long term (current) drug therapy; Z79.82 Long term (current) use of aspirin; Z87.01 Personal history of pneumonia (recurrent); Z86.73 Personal history of transient ischemic attack (TIA), and cerebral infarction without residual deficits

== ENCOUNTER 2020-01-06 11:34 | Emergency (ER) | payer OTHER ==
[~2020-01-06] VITALS: Ht 165.1 cm; Wt 158.8 kg
[~2020-01-06 11:34] MED LIST changes: +IVERMECTIN3 MG PO; +PERMETHRIN60 GM TOP; +PREDNISONE 20 M20 MG PO
[2020-01-06 11:36] VITALS: BP 101/56
[2020-01-06] MEDS ORDERED: KEFLEX500 M1 PO ×2 (11:55→12:10)
[2020-01-06] MEDS ORDERED: TRIAMCINOLONE A80 G2 TOP (12:10)
== END 2020-01-06 12:40 | disposition home or self-care (01) ==
LOC: ER 11:34
DX: L30.9 Dermatitis, unspecified (principal); E78.5 Hyperlipidemia, unspecified; Z79.82 Long term (current) use of aspirin; Z79.899 Other long term (current) drug therapy; Z87.891 Personal history of nicotine dependence; Z91.018 Allergy to other foods

== ENCOUNTER 2020-11-30 16:46 | Emergency (ER) | payer OTHER ==
[~2020-11-30] VITALS: Ht 167.6 cm; Wt 161.5 kg
[~2020-11-30 16:46] MED LIST changes: +TRIAMCINOLONE A80 G2 TOP
[2020-11-30 17:22] LABS: ABSOLUTE NEUTROPHILS 9.4 thou/uL (1.4-8.2); BASOPHILS 0.5 % (0.0-2.0); EOSINOPHILS 6.4 % (0.0-3.0); HEMOGLOBIN 12.8 gm/dL (14.0-18.0); LYMPHOCYTES 15.2 % (24.0-44.0); MCH 29.7 pg (26.0-34.0); MCHC 33.7 g/dL (28.0-37.0); MCV 88.3 fL (80.0-100.0); MONOCYTES 4.6 % (1.0-8.0); PLATELET COUNT 340 thou/uL (150-400); POLYS 73.3 % (36.0-66.0); RBC 4.31 mil/uL (4.50-6.00); RDW 14.8 % (10.5-14.5); WBC 12.8 thou/uL (4.0-11.0)
[2020-11-30 17:23] LABS: URINE BILIRUBIN NEGATIVE (Negative); URINE BLOOD 3+ (Negative); URINE COLOR YELLOW; URINE GLUCOSE-RANDOM* NEGATIVE (Negative); URINE KETONES NEGATIVE (Negative); URINE LEUKOCYTES-REFLEX NEGATIVE (Negative); URINE NITRITE-REFLEX NEGATIVE (Negative); URINE PROTEIN (DIPSTICK) 1+ (Negative); URINE SPECIFIC GRAVITY >= 1.030 (1.005-1.035); URINE UROBILINOGEN 0.2 E.U./dl (0.2-1.0)
[2020-11-30 17:24] LABS: URINE CLARITY CLOUDY
[2020-11-30 17:32] LABS: ANION GAP 8 mmol/L (7-16); BUN 17 mg/dL (7-18); CALCIUM 8.4 mg/dL (8.5-10.1); CHLORIDE 100 mmol/L (98-107); CO2 27 mmol/L (21-32); CREATININE 1.5 mg/dL (0.7-1.3); GLUCOSE 171 mg/dL (74-106); POTASSIUM 3.4 mmol/L (3.5-5.1); SODIUM 135 mmol/L (136-145)
[2020-11-30 17:35] LABS: CASTS None Seen /LPF (None Seen); SQUAMOUS 0-3 Few /LPF (0-3)
[2020-11-30 17:36] LABS: BACTERIA-REFLEX 1-9 Few /HPF (None Seen); URINE WBC-REFLEX 0-5 Rare /HPF (0-5)
[2020-11-30 17:37] LABS: AMORPHOUS URATES Moderate /LPF (None Seen)
[2020-11-30 17:41] LABS: ALBUMIN 2.8 g/dL (3.4-5.0); SGOT 15 U/L (15-37); SGPT 19 U/L (16-63); TOTAL BILIRUBIN 0.6 mg/dL (0.2-1.0); TOTAL PROTEIN 7.3 g/dL (6.4-8.2); TROPONIN-I <0.06 ng/mL (<0.06)
--- NOTE | 2020-11-30 18:52 | EKG ---
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: JENNIFER : 1955 Requested By: Silver Wilson Order Number: [id number] MD: Miah Nelson Measurements Intervals [place] Rate: 100 P: 64 NC: 187 QRS: -68 QRSD: 102 T: 87 QT: 362 QTc: 467 Interpretive Statements Sinus tachycardia Anteroseptal infarct, old Compared to ECG 06/07/2019 21:37:51 T-wave abnormality no longer present Electronically Signed On 11-30-2020 18:52:16 CDT by Miah Nelson [email or web address] <ELECTRONICALLY SIGNED> By: iMah Nelson MD, [facility] 11/30/20 1852 1650 1650 Miah Nelson MD, FACC /EPI
[2020-11-30] MEDS ORDERED: NYSTATIN15 G2 TOP (21:25)
[2020-11-30] MEDS ORDERED: CEPHALEXIN500 MG PO (21:25)
[2020-11-30 22:30] VITALS: BP 97/61
== END 2020-11-30 22:30 | disposition home or self-care (01) ==
LOC: ER 16:46
PROVIDERS: Physician Assistant
DX: R55 Syncope and collapse (principal); N39.0 Urinary tract infection, site not specified; F17.210 Nicotine dependence, cigarettes, uncomplicated; E78.00 Pure hypercholesterolemia, unspecified; Z91.018 Allergy to other foods; Z86.73 Personal history of transient ischemic attack (TIA), and cerebral infarction without residual deficits; Z87.891 Personal history of nicotine dependence